=== PATIENT | male | born 1945 | race Caucasian/White ===

== ENCOUNTER 2018-02-05 20:51 | Inpatient (IN) | payer OTHER ==
[~2018-02-05] VITALS: Ht 175.3 cm; Wt 77.1 kg
--- NOTE | ~2018-02-05 | EKG ---
[address] [address] ELECTROCARDIOGRAM REPORT Name: BETH FOX Room #: 356-P [facility] IN M.R.#: [id number] Admission: 02/05/18 Attend Phys: William Guan MD Discharge: 02/06/18 Date of : 49 Report #: [id number] THIS REPORT FOR: //name// [facility] ED Test Date: 2018-02-05 Test Time: 21:16:00 Pat Name: BETH FOX Department: Room: 356 Gender: M Claims Account Manager: MARCELA : 1945 Requested By: Codie Westbrook Order Number: [id number] MD: Kev Saavedra Measurements Intervals [place] Rate: 51 P: 15 RI: 163 QRS: -13 QRSD: 119 T: 27 QT: 473 QTc: 436 Interpretive Statements Sinus rhythm Nonspecific intraventricular conduction delay Minimal ST elevation, anterior leads No previous ECG available for comparison Electronically Signed On 02-09-2018 17:06:10 CDT by Kev Saavedra [email or web address] <ELECTRONICALLY SIGNED> By: Kev Saavedra MD 02/09/18 1706 15 15 Kev Saavedra MD /BEST
--- NOTE | ~2018-02-05 | 2DMMODE ---
[facility] [address] [employer] [place] [address] 2 D/M-MODE ECHOCARDIOGRAM Name: BETH FOX Room #: 356-P [facility] IN [facility]#: [id number] Admission: 02/05/18 Attend Phys: William Guan MD Discharge: Date of : 49 Date of Service: 02/06/18 1356 Report #: [id number] THIS REPORT FOR: //name// APPROVED REPORT Study performed: 02/06/2018 11:13:19 EXAM: Comprehensive 2D, Doppler, and color-flow Echocardiogram Patient Location: In-Patient Room #: 356 Status: routine BSA: 1.93 HR: 48 bpm BP: 147/71 mmHg Rhythm: NSR Other Information Study Quality: Good Risk Factors: Cardiac Risk Factors: HTN Indications Chest Pain Hypertension/HDD 2D Dimensions RVDd: 31.68 mm IVSd: 11.05 (7-11mm) LVOT Diam: 21.36 (18-24mm) LVDd: 49.84 mm PWd: 10.78 (7-11mm) Ascending Ao: 28.39 (22-36mm) LVDs: 35.32 (25-40mm) Aortic Root: 34.22 mm Volumes Left Atrial Volume (Systole) Single Plane 4CH: 37.16 mL Single Plane 2CH: 47.65 mL LA ESV Index: 25.00 mL/m2 Aortic Valve AoV Peak Norris.: 1.66 m/s AO Peak Gr.: 11.03 mmHg LVOT Max P.46 mmHg LVOT Max V: 1.45 m/s ROBERTO Vmax: 3.14 cm2 [facility] [address] [address] 2 D/M-MODE ECHOCARDIOGRAM Name: BETH FOX Room #: 356-P [facility] IN ..#: [id number] Admission: 02/05/18 Attend Phys: William Guan MD Discharge: Date of : 49 Date of Service: 02/06/18 1356 Report #: [id number] Mitral Valve E/A Ratio: 0.9 MV Decel. Time: 227.95 ms MV E Max Norris.: 0.57 m/s MV A Norris.: 0.64 m/s MV PHT: 66.10 ms IVRT: 134.95 ms Pulmonary Valve PV Peak Norris.: 1.15 m/s PV Peak Gr.: 5.30 mmHg Pulmonary Vein P Vein S: 0.70 m/s P Vein A: 0.37 m/s P Vein D: 0.59 m/s P Vein A Dur.: 176.5 msec P Vein S/D Ratio: 1.19 Tricuspid Valve TR Peak Norris.: 2.16 m/s RAP Estimate: 5.00 mmHg TR Peak Gr.: 18.58 mmHg PA Pressure: 24.00 mmHg Left Ventricle The left ventricle is normal size. There is normal left ventricular wall thickness. The left ventricular systolic function is normal. The left ventricular ejection fraction is within the normal range. LVEF is 55-60%. Transmitral Doppler flow pattern suggests impaired LV relaxation. Right Ventricle The right ventricle is normal size. The right ventricular systolic function is normal. Atria The left atrium size is normal. The right atrium size is normal. Aortic Valve The aortic valve is normal in structure. No aortic regurgitation is present. There is no aortic valvular stenosis. Mitral Valve The mitral valve is normal in structure. There is no mitral valve regurgitation noted. No evidence of mitral valve stenosis. Tricuspid Valve The tricuspid valve is normal in structure. Mild tricuspid [facility] [address] [place] [address] 2 D/M-MODE ECHOCARDIOGRAM Name: BETH FOX Room #: 356[facility] IN ..#: [id number] Admission: 02/05/18 Attend Phys: William Guan MD Discharge: Date of : 49 Date of Service: 02/06/18 1356 Report #: [id number] regurgitation. Estimated PAP of 24 mmHg. Pulmonic Valve Pulmonic valve is not well visualized. Trace pulmonic regurgitation. Great Vessels The aortic root is normal in size. The ascending aorta is normal in size. IVC is normal in size and collapses >50% with inspiration. Pericardium There is no pericardial effusion. <Conclusion> The left ventricle is normal size. LVEF is 55-60%. The aortic valve is normal in structure. The mitral valve is normal in structure. The tricuspid valve is normal in structure. Mild tricuspid regurgitation. Estimated PAP of 24 mmHg. Pulmonic valve is not well visualized. Trace pulmonic regurgitation. There is no pericardial effusion. <ELECTRONICALLY SIGNED> By: David Vaughan MD 02/06/18 1356 1356 1356 David Vaughan MD /INF
--- NOTE | ~2018-02-05 | EKG ---
[address] [address] ELECTROCARDIOGRAM REPORT Name: BETH FOX Room #: 356-P [facility] IN M.R.#: [id number] Admission: 02/05/18 Attend Phys: William Guan MD Discharge: 02/06/18 Date of : 49 Report #: [id number] THIS REPORT FOR: //name// [facility] ED Test Date: 2018-02-05 Test Time: 21:03:38 Pat Name: BETH FOX Department: Room: 356 Gender: M Food Concession Manager: MARCELA : 1945 Requested By: Codie Westbrook Order Number: [id number] MD: Kev Saavedra Measurements Intervals [place] Rate: 49 P: -18 HI: 155 QRS: -2 QRSD: 116 T: 34 QT: 452 QTc: 409 Interpretive Statements Slow sinus arrhythmia Nonspecific intraventricular conduction delay Minimal ST elevation, anterior leads No previous ECG available for comparison Electronically Signed On 02-09-2018 17:05:55 CDT by Kev Saavedra [email or web address] <ELECTRONICALLY SIGNED> By: Kev Saavedra MD 02/09/18 170 02 02 Kev Saavedra MD /BEST
--- NOTE | ~2018-02-05 | EKG ---
[address] [address] ELECTROCARDIOGRAM REPORT Name: BEHT FOX Room #: 356-P [facility] IN M.R.#: [id number] Admission: 02/05/18 Attend Phys: William Guan MD Discharge: 02/06/18 Date of : 49 Report #: [id number] THIS REPORT FOR: //name// [facility] ED Test Date: 2018-02-05 Test Time: 21:47:32 Pat Name: BETH FOX Department: Room: 356 Gender: M Patrol Driver: YULIET : 1945 Requested By: Codie Westbrook Order Number: [id number] MD: Kev Saavedra Measurements Intervals [place] Rate: 47 P: 43 [place]: 178 QRS: -15 QRSD: 116 T: 18 QT: 471 QTc: 417 Interpretive Statements Sinus bradycardia Nonspecific intraventricular conduction delay No previous ECG available for comparison Electronically Signed On 02-09-2018 17:06:32 CDT by Kev Saavedra [email or web address] <ELECTRONICALLY SIGNED> By: Kev Saavedra MD 02/09/18 1706 46 46 Kev Saavedra MD /BEST
[2018-02-05 21:08] VITALS: BP 130/79
[2018-02-05] MEDS ORDERED: SERTRALINE HCL50 MG PO (21:28)
[2018-02-05 21:29] LABS: ABSOLUTE NEUTROPHILS 2.6 thou/uL (1.4-8.2); BASOPHILS 0.5 % (0.0-2.0); HEMATOCRIT 38.7 % (42.0-52.0); HEMOGLOBIN 13.6 gm/dL (14.0-18.0); LYMPHOCYTES 32.3 % (24.0-44.0); MCH 32.4 pg (26.0-34.0); MCHC 35.2 g/dL (28.0-37.0); MCV 92.1 fL (80.0-100.0); MONOCYTES 9.8 % (1.0-8.0); PLATELET COUNT 190 thou/uL (150-400); POLYS 55.4 % (36.0-66.0); RDW 12.9 % (10.5-14.5); WBC 4.7 thou/uL (4.0-11.0)
[2018-02-05 21:42] LABS: ANION GAP 11 mmol/L (7-16); BUN 11 mg/dL (7-18); CALCIUM 9.3 mg/dL (8.5-10.1); CHLORIDE 96 mmol/L (98-107); CO2 23 mmol/L (21-32); GLUCOSE 73 mg/dL (74-106); POTASSIUM 3.6 mmol/L (3.5-5.1); SODIUM 130 mmol/L (136-145)
[2018-02-05 21:46] LABS: ALBUMIN 4.1 g/dL (3.4-5.0); SGOT 18 U/L (15-37); SGPT 24 U/L (30-65); TOTAL BILIRUBIN 1.1 mg/dL (<0.1-1.0); TOTAL PROTEIN 7.5 g/dL (6.4-8.2); TROPONIN-I <0.06 ng/mL (<0.06)
[2018-02-05 22:43] VITALS: BP 147/65
[2018-02-05 22:59] VITALS: BP 147/65
[2018-02-05 23:10] VITALS: BP 175/77
[2018-02-06 01:00] VITALS: BP 168/83
[2018-02-06 04:00] VITALS: BP 147/71
[2018-02-06 06:41] LABS: CHOLESTEROL 214 mg/dL (<200); HDL CHOLESTEROL 50 mg/dL (>40); LDL CHOLESTEROL 155 mg/dL (<100); TC:HDL 4.3 Ratio (Not establshd); TRIGLYCERIDE 47 mg/dL (<150); VLDL 9 mg/dL (<40)
[2018-02-06 08:26] VITALS: BP 153/78
[2018-02-06 17:02] VITALS: BP 167/72
[2018-02-06] MEDS ORDERED: ASPIR 8181 MG PO (17:23)
[2018-02-06] MEDS ORDERED: NORVASC5 MG PO (17:23)
[2018-02-06] MEDS ORDERED: LIPITOR 20 MG T20 M1 PO (17:24)
[2018-02-06 17:30] VITALS: BP 153/78
== END 2018-02-06 17:56 | disposition home or self-care (01) | DRG 552 ==
LOC: ER 20:51 → EDSEX 20:51 → 3W 22:29 → EROBS 22:29 → 3W 23:00
PROVIDERS: Nurse Practitioner Acute Care; Physician Assistant
DX: M54.2 Cervicalgia (principal); F32.9 Major depressive disorder, single episode, unspecified; I10 Essential (primary) hypertension; Z87.891 Personal history of nicotine dependence; Z98.818 Other dental procedure status; Z87.81 Personal history of (healed) traumatic fracture; Z82.49 Family history of ischemic heart disease and other diseases of the circulatory system; Z83.6 Family history of other diseases of the respiratory system; Z79.82 Long term (current) use of aspirin; Z79.899 Other long term (current) drug therapy
CPT/HCPCS: 10779